=== PATIENT | male | born 1990 | race African-American/Black ===

== ENCOUNTER 2016-11-11 13:01 | Emergency (ER) | payer SELFPAY ==
[~2016-11-11] VITALS: Ht 175.3 cm; Wt 76.7 kg
[~2016-11-11 13:01] MED LIST: ALBUTEROL SULF8.5 GM INH; CIPRO500 MG PO; DOXYCYCLINE MO100 MG ORAL; IBUPROFEN600 MG ORAL; IBUPROFEN800 MG ORAL; LIDOCAINE VISCO20 ML PO; NEXAFED30 MG ORAL; NKM; NORCO 5-325 TA1 EACH ORAL; PREDNISONE20 MG ORAL; TRAMADOL HCL50 MG ORAL
[2016-11-11 13:29] VITALS: BP 131/76
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
[2016-11-11] MEDS ORDERED: IBUPROFEN600 MG ORAL (13:47)
[2016-11-11 14:08] VITALS: BP 131/76
--- NOTE | 2016-11-12 11:06 | Diagnostic Imaging Report ---
Indication: pain Findings: 3 views of the left hand were obtained. Normal bony mineralization and alignment are demonstrated. No acute fractures, erosions, or periosteal reaction are seen. Soft tissues are unremarkable. Impression: Negative examination of the left hand.
--- NOTE | 2016-11-12 11:06 | Diagnostic Imaging Report ---
Indication: pain Findings: 3 views of the right hand were obtained. Normal bony mineralization and alignment are demonstrated. No acute fractures, erosions, or periosteal reaction are seen. Soft tissues are unremarkable. Impression: Negative examination of the right hand.
== END 2016-11-11 14:09 | disposition home or self-care (01) ==
LOC: EMR 13:26
DX: S63.619A Unspecified sprain of unspecified finger, initial encounter (principal); Y09 Assault by unspecified means
CPT/HCPCS: 29130; 99283

== ENCOUNTER 2016-11-26 16:57 | Emergency (ER) | payer MEDICAID ==
[~2016-11-26] VITALS: Ht 175.3 cm; Wt 81.2 kg
[2016-11-26] MEDS ORDERED: Methocarbamol 750mg tab ORAL ONE (17:15)
[2016-11-26 17:23] VITALS: BP 112/62
--- NOTE | 2016-11-26 17:34 | Emergency Room Report ---
History of Present Illness General Chief Complaint: Lower Back Pain or Injury Source: Patient Present Illness HPI The patient is a 26-year-old male presenting for lower back pain. The patient states that he was lifting a heavy object at work 4 days ago and noticed a sharp pain to the left lower back. Pain is described as a 10 out of 10 dull ache now and does not radiate. Pain worse with movement such as bending over and twisting. He denies previous injury to the back. He denies any other injury or symptoms Allergies: Coded Allergies: No Known Allergies (Unverified , 07/14/13) Patient History Past Medical History: see triage record Pertinent Family History: none Reviewed Nursing Documentation: PMH: Agreed, PSxH: Agreed Review of Systems All Other Systems: negative except mentioned in HPI Physical Exam Vital Signs Date Time Temp Pulse Resp B/P Pulse Ox O2 Delivery O2 Flow Rate FiO2 11/26/16 17:00 97.9 70 15 112/62 98 Room Air Sp02 EP Interpretation: reviewed, normal General Appearance: no apparent distress, alert, GCS 15, non-toxic Head: normocephalic, atraumatic Eyes: bilateral eye PERRL, bilateral eye normal inspection ENT: hearing grossly normal, normal pharynx, no angioedema, normal voice Genitourinary: normal inspection, no CVA tenderness Musculoskeletal: gait/station normal, decreased range of motion, tender - Lumbar L paraspinous muscles Neurologic: alert, oriented x3, responsive, motor strength/tone normal, sensory intact, normal gait, speech normal Psychiatric: judgement/insight normal, memory normal, mood/affect normal, no suicidal/homicidal ideation Skin: normal color, no rash, warm/dry, well hydrated Lymphatic: no adenopathy Medical Decision Making PA Attestation Dr. Landaverde is my supervising physician. Patient management was discussed with my supervising physician Diagnostic Impression: Primary Impression: Muscle strain ER Course The patient is a 26-year-old male presenting for lower back pain. Ddx considered include but not limited to lumbar strain, degenerative disease, contusion, fracture Physical exam findings are consistent with muscular strain of the lumbar spine. The patient is given Motrin and Robaxin and he will be discharged with the same medications. He needs to followup with primary doctor. ER precautions given Last Vital Signs Date Time Temp Pulse Resp B/P Pulse Ox O2 Delivery O2 Flow Rate FiO2 11/26/16 17:23 97.9 15 112/62 98 Room Air 11/26/16 17:00 70 Status: improved Disposition: HOME, SELF-CARE Condition: Improved Scripts Methocarbamol* (ROBAXIN-750*) 750 Mg Tablet 750 MG PO TID, #21 TAB 0 Refills Prov: HEAVEN CUEVAS.ABing 11/26/16 Ibuprofen* (MOTRIN*) 600 Mg Tablet 600 MG ORAL Q8H Y for For Pain, #30 TAB 0 Refills Prov: HEAVEN CUEVAS 11/26/16 Referrals: NOT CHOSEN [facility]/,REFERRING (PCP) HEAVEN CUEVAS Nov 26, 2016 17:34
[2016-11-26] MEDS ORDERED: ROBAXIN-750750 MG PO (17:37)
[2016-11-26] MEDS ORDERED: IBUPROFEN600 MG ORAL (17:37)
[2016-11-26 17:40] VITALS: BP 112/62
== END 2016-11-26 17:40 | disposition home or self-care (01) ==
LOC: EMR 17:25
DX: S39.012A Strain of muscle, fascia and tendon of lower back, initial encounter (principal); X50.0XXA Overexertion from strenuous movement or load, initial encounter; Y92.89 Other specified places as the place of occurrence of the external cause
CPT/HCPCS: 99284

== ENCOUNTER 2017-09-10 14:42 | Emergency (ER) | payer MEDICAID, OTHER ==
[~2017-09-10] VITALS: Ht 172.7 cm; Wt 72.6 kg
[~2017-09-10 14:42] MED LIST changes: +ROBAXIN-750750 MG PO
[2017-09-10] MEDS ORDERED: ACETAMINOPHEN325 M1 ORAL (15:13)
[2017-09-10] MEDS ORDERED: Bicillin LA 2,400,000 units IM ONE (15:15)
[2017-09-10] MEDS ORDERED: Lidocaine 2% Visc 15ml soln ORAL ONE (15:15)
--- NOTE | 2017-09-10 15:15 | Emergency Room Report ---
History of Present Illness General Chief Complaint: Sore Throat Source: Patient Present Illness HPI 27 yo male patient presents to ER complaining of sore throat x3 days. Reports subjective fever and chills during this time. Reports pain with swallowing, able to drink fluids. Denies voice change. Denies chest pain, SOB, abdominal pain. Denies neck stiffness. Denies rash, vision changes, tooth pain. Denies hx of tonsillitis. Allergies: Coded Allergies: No Known Allergies (Unverified , 07/14/13) Patient History Past Medical History: see triage record Reviewed Nursing Documentation: PMH: Agreed; PSxH: Agreed Nursing Documentation-PMH Past Medical History: No History, Except For Review of Systems All Other Systems: negative except mentioned in HPI Physical Exam Vital Signs Date Time Temp Pulse Resp B/P (MAP) Pulse Ox O2 Delivery O2 Flow Rate FiO2 09/10/17 14:46 100.1 101 20 106/65 98 Room Air 100.0 Sp02 EP Interpretation: reviewed, normal General Appearance: well appearing, no apparent distress, alert, GCS 15, non- toxic Head: normocephalic, atraumatic Eyes: bilateral eye normal inspection, bilateral eye PERRL ENT: hearing grossly normal, normal pharynx, no angioedema, normal voice, TMs + canals normal, uvula midline, moist mucus membranes, tonsillar swelling, pharyngeal erythema, tonsillar exudate, other - no uvular deviation, no hotpotato voice Neck: full range of motion Respiratory: lungs clear, normal breath sounds, no rhonchi, no respiratory distress, no accessory muscle use, no wheezing, speaking full sentences, other Cardiovascular #1: regular rate, rhythm, no edema Genitourinary: no CVA tenderness Musculoskeletal: back normal, digits/nails normal, gait/station normal, normal range of motion, non-tender Neurologic: alert, oriented x3, responsive, motor strength/tone normal, sensory intact Psychiatric: mood/affect normal Skin: no rash Lymphatic: adenopathy Medical Decision Making PA Attestation Dr. Raymond is my supervising Physician whom patient management has been discussed with. Diagnostic Impression: Primary Impression: Tonsillitis ER Course Pt presents to ED c/o sore throat and fever. DDX considered but are not limited to pharyngitis, laryngitis, URI, peritonsillar abscess, tonsillitis. Low suspicion for peritonsillar abscess, no uvula deviation, no hot potato voice , no stridor, no drooling. VITAL SIGNS are WNL, patient is afebrile. Temperature 100.1. Last took Ibuprofen yesterday. ORDERS: -Penicillin G -Dexamethasone -Viscous Lidocaine ER COURSE: Followup in 1-2 days for recheck. Return immediately for new or worsening of symptoms. Salt water gargles. Patient reports feeling better following administration of medication. Tylenol for pain and fever. Patient nontoxic appearing, talking without difficulty. Patient stable for discharge to home. DISCHARGE: Rx provided for Tylenol for pain and fever. Salt water gargles At this time pt is stable for d/c to home. Patient is resting comfortably, in no acute distress, nontoxic appearing, talking without difficulty. Will provide with patient care instructions and any necessary prescriptions. Patient to take medication as instructed. Care plan and follow-up instructions provided. Patient questions asked and answered. Patient instructed to follow-up with primary care provide. ER precautions given. Patient instructed to return to ER immediately for any new or worsening of symptoms. Last Vital Signs Date Time Temp Pulse Resp B/P (MAP) Pulse Ox O2 Delivery O2 Flow Rate FiO2 09/10/17 14:46 100.1 101 20 106/65 98 Room Air 100.0 Disposition: HOME, SELF-CARE Condition: Stable Scripts Acetaminophen* (ACETAMINOPHEN 325MG TABLET*) 325 Mg Tablet 650 MG ORAL Q6H PRN for For Pain for 7 Days, #30 TAB Prov: Eduard Veronica 09/10/17 Patient Instructions: Tonsillitis Additional Instructions: Followup with primary care provider in 1-2 days to check on symptoms. Take medications as directed. Tylenol for fever and pain symptoms. Patient questions asked and answered. ER precautions given, patient instructed to return to ER immediately for any new or worsening of symptoms. Eduard Veronica Sep 10, 2017 15:15
[2017-09-10 16:03] VITALS: BP 127/79
== END 2017-09-10 16:09 | disposition home or self-care (01) ==
LOC: EMR 15:00
DX: J03.90 Acute tonsillitis, unspecified (principal)
CPT/HCPCS: 96372; 99283; J8540

== ENCOUNTER 2018-02-14 01:24 | Emergency (ER) | payer OTHER ==
[2018-02-14] VITALS (9 sets, daily range): BP systolic 97–126; BP diastolic 54–87
[~2018-02-14] VITALS: Ht 175.3 cm; Wt 74.8 kg
[~2018-02-14 01:24] MED LIST changes: +ACETAMINOPHEN325 M1 ORAL
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
[2018-02-14] MEDS ORDERED: HYDROmorphone 1mg/ml Carpuject ONE (01:51)
[2018-02-14] MEDS ORDERED: HYDROmorphone 1mg/ml Carpuject IVP ONE (02:00)
[2018-02-14] MEDS ORDERED: Propofol 200mg/20ml IV ONE ×2 (02:05→02:45)
[2018-02-14] MEDS ORDERED: IBUPROFEN600 MG ORAL (02:38)
--- NOTE | 2018-02-14 11:20 | Diagnostic Imaging Report ---
Indication: Right shoulder pain Findings: 3 views of the right shoulder were obtained. Dislocation of the glenohumeral joint demonstrated on the 3 views obtained. IMPRESSION: Dislocation
--- NOTE | 2018-02-14 11:20 | Diagnostic Imaging Report ---
Indication: Right shoulder pain. Status post reduction COMPARISON: Earlier the same day Findings: 3 views of the right shoulder were obtained. No acute fractures, malalignment, erosions or periostitis are identified. Glenohumeral joint alignment is now normal. Soft tissues are unremarkable. Impression: Good reduction. No acute fracture Note: The views are suboptimal technically
== END 2018-02-14 03:50 | disposition home or self-care (01) ==
LOC: EMR 01:43
DX: M24.411 Recurrent dislocation, right shoulder (principal)
CPT/HCPCS: 23650; 73030; 96374; 96375; 99285; J1170; J2405; J2704; Z7502

== ENCOUNTER 2018-05-01 12:25 | Emergency (ER) | payer OTHER ==
[~2018-05-01] VITALS: Ht 175.3 cm; Wt 72.6 kg
[2018-05-01] MEDS ORDERED: Bacitracin Oint UD TOPIC ONE (13:00)
[2018-05-01] MEDS ORDERED: Tetanus/Diptheria/Pertussis Vaccine 0.5ml Syr IM ONE (13:00)
[2018-05-01] MEDS ORDERED: Ketorolac 30mg Inj IM ONE (13:00)
--- NOTE | 2018-05-01 13:02 | Emergency Room Report ---
History of Present Illness General Chief Complaint: Lower Extremity Injury Source: Patient (Eduard Veronica) Present Illness HPI 27-year-old male patient presents ER complaining of "hole in left leg". [place] was [place] the park [place] when he fell down and hit a metal screw that was in the ground. States does not know tetanus vaccination status. Reports pain with ambulation. Reports active bleeding, controlled gauze. Denies fever, chest pain or shortness breath. Denies stab or gunshot wound. (Eduard Veronica) Allergies: Coded Allergies: No Known Allergies (Unverified , 07/14/13) Patient History Past Medical History: see triage record Reviewed Nursing Documentation: PMH: Agreed; PSxH: Agreed (Eduard Veronica) Nursing Documentation-PMH Past Medical History: No History, Except For (Eduard Veronica) Review of Systems All Other Systems: negative except mentioned in HPI (Eduard Veronica) Physical Exam Vital Signs Date Time Temp Pulse Resp B/P (MAP) Pulse Ox O2 Delivery O2 Flow Rate FiO2 05/01/18 12:42 97.9 83 20 113/76 98 Room Air Sp02 EP Interpretation: reviewed, normal General Appearance: well appearing, no apparent distress, alert, GCS 15, non- toxic Head: normocephalic, atraumatic ENT: hearing grossly normal, normal pharynx, no angioedema, normal voice, uvula midline, moist mucus membranes Neck: full range of motion Respiratory: lungs clear, normal breath sounds, no rhonchi, no respiratory distress, no accessory muscle use, no wheezing, speaking full sentences Cardiovascular #1: regular rate, rhythm, no edema Cardiovascular #2: 2+ dorsalis pedis (R), 2+ dorsalis pedis (L) Musculoskeletal: back normal, digits/nails normal, gait/station normal, normal range of motion, non-tender Neurologic: alert, oriented x3, responsive, motor strength/tone normal, sensory intact Psychiatric: mood/affect normal Skin: other - 1 cm circular puncture wound noted on the distal lateral left thigh near the knee, active bleeding, no surrounding erythema or edema, deep (Eduard Veronica) Medical Decision Making PA Attestation Dr. Loza is my supervising Physician whom patient management has been discussed with. (Eduard Veronica) Medicare Attestation The history of Julio Gray has been reviewed and management options for him have been examined and discussed by Anca Loza. I have personally examined and interviewed the patient. This patient was found to have pneumarthrosis consistent with embarrassment of the knee joint. The patient was given broad- spectrum IV antibiotics here in the emergency department. The wound was not closed. I felt that given the risk of infection this wound should be left open to heal by secondary intention. The case was also discussed with the weatherization crew leader orthopedic surgeon, Dr. Phillips. Dr. Phillips stated that this patient did not need admission to the hospital or need any joint washout of any sort and that this condition is monitored conservatively with close follow-up and does not require IV antibiotics, joint washout her admission to the hospital. As a precaution, I did place this patient on oral antibiotics given the nature of the wound being a puncture wound and further obviously involved the knee joint. The patient was educated extensively on very close follow-up in the signs and symptoms of septic joint. The patient indicated understanding and intention to do so. (Anca Loza DO) Diagnostic Impression: Primary Impression: Puncture wound Additional Impression: Internal derangement of knee ER Course Pt. presents to the ED c/o "hole in leg". Ddx considered but are not limited to fracture, sprain, strain, contusion, dislocation. No erythema, no warmth to touch, no fever, nontoxic appearing, low suspicion for septic joint. Soft compartments, no pulselessness, no pallor, no paresthesias, low suspicion for compartment syndrome at this time. Vital signs: are WNL, pt. is afebrile Ordered X-ray and pain medication. ER COURSE Provided with pain medication and IV fluids. Wound cleaned and irrigated with copious saline. advised patient on concern for development of infection. Advised keep clean and dry. Dressed with sterile gauze and JUVENAL wrap. TDAP provided. CBC and CMP unremarkable. Provide with Ancef IV antibiotics on the ER An X-ray of the left knee shows Pneumarthrosis of the left knee joint, presumably related to stated clinical history of penetrating trauma No acute bony trauma or radiopaque foreign body Discuss patient with Dr. Loza. Dr. Loza consult with Dr. Phillips, states Ok for outpatient followup, allow to heal by secondary intention. Does not require wound closure at this time. Wound cleaned and dressed. knee immobilizer was applied to the left knee and was checked afterwards by me showing good alignment and support with distal neurovascular functioning intact. Crutches provided. Patient instructed on RICE method: rest, ice, compression, elevation. Patient instructed on rest, ice and heat. Patient instructed to be NWB Contact information for orthopedic urgent care provided, follow-up with urgent care if unable to followup with primary care provider and get referral to network management specialist. Followup with [facility] [place], [place] if unable to be seen by PCP or specialist. Followup with primary care provider. Discuss referral to ortho/pain management/ PT as needed. Discuss further imaging with MRI/CT as needed. ER precautions given. Provided with pain medication prior to discharge. DISCHARGE: -Rx provided for [place]. CURES reviewed. -Rx provided for Keflex At this time pt. is stable for d/c to home. Patient is resting comfortably, in no acute distress, nontoxic appearing, talking without difficulty. Will provide printed patient care instructions, and any necessary prescriptions. Patient instructed to follow with primary care provider in 3 - 5 days and to request further follow-up as needed. Care plan and follow up instructions have been discussed with the patient prior to discharge. Take medications as directed. Patient questions asked and answered. Patient reports understanding and agreement to treatment plan. ER precautions given, patient instructed to return to ER immediately for any new or worsening of symptoms. - Please note that this Emergency Department Report was dictated using [employer] out man technology software, occasionally this can lead to erroneous entry secondary to interpretation by the dictation equipment. Labs Test 05/01/18 14:34 White Blood Count 6.4 K/UL (4.8-10.8) Red Blood Count 5.24 M/UL (4.70-6.10) Hemoglobin 14.5 G/DL (14.2-18.0) Hematocrit 43.4 % (42.0-52.0) Mean Corpuscular Volume 83 FL (80-99) Mean Corpuscular Hemoglobin 27.6 PG (27.0-31.0) Mean Corpuscular Hemoglobin Concent 33.3 G/DL (32.0-36.0) Red Cell Distribution Width 11.8 % (11.6-14.8) Platelet Count 188 K/UL (150-450) Mean Platelet Volume 7.2 FL (6.5-10.1) Neutrophils (%) (Auto) 64.3 % (45.0-75.0) Lymphocytes (%) (Auto) 27.1 % (20.0-45.0) Monocytes (%) (Auto) 6.6 % (1.0-10.0) Eosinophils (%) (Auto) 0.9 % (0.0-3.0) Basophils (%) (Auto) 1.1 % (0.0-2.0) Sodium Level 139 MMOL/L (136-145) Potassium Level 4.1 MMOL/L (3.5-5.1) Chloride Level 105 MMOL/L (98-107) Carbon Dioxide Level 26 MMOL/L (21-32) Anion Gap 8 mmol/L (5-15) Blood Urea Nitrogen 10 mg/dL (7-18) Creatinine 1.2 MG/DL (0.55-1.30) Estimat Glomerular Filtration Rate > 60 mL/min (>60) Glucose Level 83 MG/DL (74-106) Calcium Level 9.2 MG/DL (8.5-10.1) Total Bilirubin 0.5 MG/DL (0.2-1.0) Aspartate Amino Transf (AST/SGOT) 31 U/L (15-37) Alanine Aminotransferase (ALT/SGPT) 26 U/L (12-78) Alkaline Phosphatase 75 U/L (46-116) Total Protein 8.3 G/DL (6.4-8.2) Albumin 4.1 G/DL (3.4-5.0) Globulin 4.2 g/dL Albumin/Globulin Ratio 1.0 (1.0-2.7) (Eduard Veronica P.A.) Other X-Ray Diagnostic Results Other X-Ray Diagnostic Results : X-Ray ordered: left knee # of Views/Limited Vs Complete: 3 View Indication: Pain EP Interpretation: Yes PA Xray: Interpretation reviewed, by supervising MD, and agrees with findings. Interpretation: no dislocation, no soft tissue swelling, no fractures, other - Pneumarthrosis of the left knee joint Impression: Other - Pneumarthrosis PA Scribe Text Mike Veronica PA-C (Eduard Veronica P.A.) Last Vital Signs Date Time Temp Pulse Resp B/P (MAP) Pulse Ox O2 Delivery O2 Flow Rate FiO2 05/01/18 12:42 97.9 83 20 113/76 98 Room Air (Eduard Veronica) Disposition: HOME, SELF-CARE Condition: Stable Scripts Cephalexin* (KEFLEX*) 500 Mg Capsule 500 MG ORAL EVERY 12 HOURS, #14 CAP 0 Refills Prov: Eduard Veronica 05/01/18 Hydrocodone Bit/Acetaminophen 5-325* (NORCO 5-325*) 1 Each Tablet 1 TAB ORAL Q6H PRN for For Pain, #10 TAB 0 Refills Prov: Eduard Veronica 05/01/18 Patient Instructions: Knee Pain, [id number], Puncture Wound, [id number] Additional Instructions: Patient instructed to follow up with primary care provider and discuss further referral to orthopedics/physical therapy/pain management as needed. If unable to followup with PCP, followup with orthopedic urgent care in 5-7 days , call to schedule appointment. If unable to followup with either, followup with [facility]. Patient instructed on RICE method: rest, ice, compression, elevation. Patient instructed to NWB Take medications as directed. Patient questions asked and answered. ER precautions given, patient instructed to return to ER immediately for any new or worsening of symptoms. [facility] [address] [facility] [address] [facility], [address] [email or web address] Eduard Veronica May 01, 2018 13:02 Anca Loza DO May 02, 2018 07:12
[2018-05-01] MEDS ORDERED: ceFAZolin 2gm/50ml Premix 50 ML IVPB ONE (14:15)
[2018-05-01 15:00] LABS: ANION GAP 8 mmol/L (5-15); BLOOD UREA NITROGEN 10 mg/dL (7-18); CALCIUM 9.2 MG/DL (8.5-10.1); CARBON DIOXIDE 26 MMOL/L (21-32); CHLORIDE 105 MMOL/L (98-107); CREATININE 1.2 MG/DL (0.55-1.30); POTASSIUM 4.1 MMOL/L (3.5-5.1); SODIUM 139 MMOL/L (136-145)
[2018-05-01 15:02] LABS: BASOPHILS % (AUTO) 1.1 % (0.0-2.0); EOSINOPHILS % (AUTO) 0.9 % (0.0-3.0); HEMATOCRIT 43.4 % (42.0-52.0); HEMOGLOBIN 14.5 G/DL (14.2-18.0); LYMPHOCYTES % (AUTO) 27.1 % (20.0-45.0); MEAN CORPUSCULAR VOLUME 83 FL (80-99); MONOCYTES % (AUTO) 6.6 % (1.0-10.0); NEUTROPHILS % (AUTO) 64.3 % (45.0-75.0); PLATELET COUNT 188 K/UL (150-450); RED BLOOD COUNT 5.24 M/UL (4.70-6.10); RED CELL DISTRIBUTION WIDTH 11.8 % (11.6-14.8); WHITE BLOOD COUNT 6.4 K/UL (4.8-10.8)
[2018-05-01 15:05] LABS: ALANINE AMINOTRANSFERASE 26 U/L (12-78); ALBUMIN 4.1 G/DL (3.4-5.0); ALKALINE PHOSPHATASE 75 U/L (46-116); ASPARTATE AMINO TRANSFERASE 31 U/L (15-37); BILIRUBIN,TOTAL 0.5 MG/DL (0.2-1.0)
--- NOTE | 2018-05-01 15:19 | Diagnostic Imaging Report ---
Indication: Knee pain, status post puncture wound after fall while playing basketball Technique: 3 views of the left knee Comparison: None Findings: A large amount of gas is seen occupying the expected region of the knee joint, including the suprapatellar recess. A small amount of gas is also seen within the adjacent extra-articular soft tissues. No radiopaque foreign body. No acute fractures. No dislocations. No definite effusion Impression: Pneumarthrosis of the left knee joint, presumably related to stated clinical history of penetrating trauma No acute bony trauma or radiopaque foreign body
[2018-05-01] MEDS ORDERED: CEPHALEXIN500 MG ORAL (16:28)
[2018-05-01] MEDS ORDERED: NORCO 5-325 TA1 EACH ORAL (16:28)
[2018-05-01] MEDS ORDERED: Norco 5mg/325mg tab ORAL ONE (16:45)
[2018-05-01 17:14] VITALS: BP 113/76
== END 2018-05-01 16:50 | disposition home or self-care (01) ==
LOC: EMR 14:13
DX: S71.132A Puncture wound without foreign body, left thigh, initial encounter (principal); W19.XXXA Unspecified fall, initial encounter; Y93.67 Activity, basketball; Y92.9 Unspecified place or not applicable; Z23 Encounter for immunization; M23.8X2 Other internal derangements of left knee
CPT/HCPCS: 36415; 73562; 80053; 85025; 90471; 90715; 96361; 96365; 96372; 99284; J0690; J1885